=== PATIENT | male | born 1945 | race Caucasian/White ===

== ENCOUNTER 2021-03-04 03:59 | Outpatient (CLI) | payer MEDICARE, SELFPAY ==
[2021-03-04 13:02] LABS: HCT 39.7 % (40.0-50.0); HGB 13.4 g/dL (13.5-17.5); MCHC 33.8 % (32.0-36.0); MCV 91.9 fL (80-95); MPV 11.2 fL (8.0-11.0); Platelet Count 154 10^3/uL (130-400); RBC 4.32 10^6/uL (4.36-5.78); RDW 12.4 % (11.8-14.1); WBC 7.69 10^3/uL (4.4-10.8)
[2021-03-04 13:14] LABS: ALT 35 U/L (16-63); AST 17 U/L (15-37); Albumin 4.1 g/dL (3.4-5.0); Alkaline Phosphatase 51 U/L (46-116); Anion Gap 7.3 mmol/L (3-11); BUN 26 mg/dL (7-18); Bilirubin, Total 0.6 mg/dL (0.2-1.0); CO2 31.7 mmol/L (21.0-32.0); CREATININE 1.5 mg/dL (0.70-1.30); Calculated LDL 74 mg/dL (<100); Chloride 100 mmol/L (98-107); Cholesterol 140 mg/dL (<200); Glucose 114 mg/dL (74-106); HDL Cholesterol 37 mg/dL (40-60); Potassium 4.4 mmol/L (3.5-5.1); Sodium 139 mmol/L (136-145); TSH (W/Ref FT4) 0.77 uIU/mL (0.36-3.74); Triglyceride 145 mg/dL (<150)
[2021-03-04 13:36] LABS: COMMENT (LAB VIEW ONLY) 63.04 mg/dL; Microalb ug/mg Crea 43.6 ug/mg Cr
== END 2021-03-04 04:00 | disposition home or self-care (01) ==
LOC: LOS 03:59
PROVIDERS: PCP Nurse Practitioner Family; Visit Provider Family Medicine
DX: I10 Essential (primary) hypertension; E78.5 Hyperlipidemia, unspecified; E11.69 Type 2 diabetes mellitus with other specified complication
CPT/HCPCS: 36415; 80053; 80061; 85027; 82043; 82570; 83036; 84443

== ENCOUNTER 2021-10-29 02:31 | Outpatient (CLI) | payer MEDICARE, SELFPAY ==
[2021-10-29 10:48] LABS: HCT 38.9 % (40.0-50.0); HGB 12.7 g/dL (13.5-17.5); MCH 29.5 pg (27.0-33.0); MCHC 32.6 % (32.0-36.0); MCV 91 fL (80-95); MPV 11.3 fL (8.0-11.0); Platelet Count 173 10^3/uL (130-400); RDW 12.5 % (11.8-14.1); RDW-SD 40.9 fL; WBC 8.37 10^3/uL (4.4-10.8)
[2021-10-29 11:05] LABS: Hemoglobin A1C 7.5 % (<5.7)
[2021-10-29 11:09] LABS: ALT 16 U/L (16-63); AST 16 U/L (15-37); Albumin 3.8 g/dL (3.4-5.0); Alkaline Phosphatase 79 U/L (46-116); Anion Gap 12.1 mmol/L (3-11); BUN 44 mg/dL (7-18); Bilirubin, Total 0.5 mg/dL (0.2-1.0); CO2 25.9 mmol/L (21.0-32.0); CREATININE 1.9 mg/dL (0.70-1.30); Calcium 10.2 mg/dL (8.5-10.1); Calculated LDL 84 mg/dL (<100); Chloride 97 mmol/L (98-107); Cholesterol 141 mg/dL (<200); Estimated GFR 34.64 (mL/min/1.73m2); Glucose 149 mg/dL (74-106); HDL Cholesterol 39 mg/dL (40-60); Potassium 4.2 mmol/L (3.5-5.1); Sodium 135 mmol/L (136-145); Total Protein 7.6 g/dL (6.4-8.2); Triglyceride 94 mg/dL (<150)
[2021-10-29 11:24] LABS: COMMENT (LAB VIEW ONLY) 81.61 mg/dL; Microalb ug/mg Crea 19.7 ug/mg Cr
== END 2021-10-29 02:32 | disposition home or self-care (01) ==
LOC: LOS 02:31
PROVIDERS: PCP Nurse Practitioner Family; Visit Provider Family Medicine
DX: E78.5 Hyperlipidemia, unspecified; I10 Essential (primary) hypertension; E11.621 Type 2 diabetes mellitus with foot ulcer; L97.529 Non-pressure chronic ulcer of other part of left foot with unspecified severity; N18.9 Chronic kidney disease, unspecified
CPT/HCPCS: 36415; 80053; 80061; 85027; 82043; 82570; 83036

== ENCOUNTER 2021-11-13 09:55 | Day surgery (SDC) | payer MEDICARE, SELFPAY ==
[2021-11-13 10:15] VITALS: BP 167/57; PULSE 54; RESP 17; TEMP 36.3; O2SAT 100
[2021-11-13] MEDS: Silver Nitrate Stick 1 EACH (13:32)
--- NOTE | 2021-11-13 13:40 | W.PM.OP ---
Date of service: 11/13/21 Time of Service: 13:40 Operative Note Operative Note DATE OF PROCEDURE: 11/13/21 PRE-OP DIAGNOSIS: diabetic neuropathic left heel wound PROCEDURE: Full-thickness debridement with jose wound VAC application left heel SURGEON: Haroon Rubio Refer to Anesthesia Record ESTIMATED BLOOD LOSS: 1 PATHOLOGY: other COMPLICATIONS: None Indications: 76-year-old male with dense neuropathy diabetes comorbidities chronic wound of his left heel being brought to the OR for debridement. Original concept was to use Apligraf to stimulate wound granulation but during the debridement noted that he had a deep tunneling approaching the calcaneus although no purulence or active signs of bacterial infection such as cellulitis was observed I decided to withhold the Apligraf application. Procedure Description: Ehsan was brought to the operative suite placed in the supine position with the left foot was prepped and draped in the usual sterile podiatric fashion. With a #10 scalpel and pickup the wound was sharply debrided on the left heel. Upon debridement grayish fibrotic tissue was resected from the base of the wound, hypertrophy from the margin was resected and the wound measured 3.5 cm in width 1.75 cm in length it was 6 to 8 mm deep. Instrument approached if not hit the plantar aspect of the calcaneus. The underlying bone appeared hard. Active bleeding was appreciated from the wound margins with minimal bleeding through the central portion. The fatty tissue within the base of the wound was poorly vascularized and look grayish in appearance. Once again no edith purulence or odor was identified. Cultures were obtained from the deep wound aerobic and anaerobic specimens being obtained. Silver nitrate was used to control bleeding around the periphery of the wound successfully. A jose wound VAC was applied. Good suction was identified. He will be started on p.o. antibiotics x2 Ehsan left the OR with vital signs stable vascular status intact and will follow-up with me in the office next week.
--- NOTE | 2021-11-13 13:46 | DSE_ITS ---
Date of service: 11/13/21 Time of Service: 13:46 Discharge Plan Disposition Patient Disposition: HOME Condition: Good Discharge Details Reason For Visit: Debridement wound left heel Attending Provider: Haroon Rubio Primary Care Provider: Bala Alvarez Home Meds and New Rx's Prescriptions: No Action amlodipine 10 mg tablet 10 mg PO DAILY Qty: 90 4RF chlorthalidone 50 mg tablet 50 mg PO DAILY Qty: 90 4RF tamsulosin 0.4 mg capsule 0.4 mg PO DAILY Qty: 90 3RF metformin 1,000 mg tablet 1,000 mg PO BID Qty: 180 3RF aspirin 81 mg tablet,delayed release (DR/EC) 81 mg PO DAILY atenolol 100 mg tablet 100 mg PO BID (DME) OneTouch Ultra Test Strip See Rx Instructions .ROUTE .MEDSUPPLY Qty: 10 Rx Instructions: As directed cholecalciferol (vitamin D3) 25 mcg (1,000 unit) tablet 25 mcg PO DAILY glipizide 10 mg tablet 10 mg PO BID Label Comments: Pt states no longer taking.HE ogfarxgwhrkn-tsgomggs-cafdis Tablet 1 tab PO DAILY lovastatin 20 mg tablet 20 mg PO DAILY Qty: 90 4RF lisinopril 20 mg tablet 20 mg PO BID Qty: 90 3RF Discharge Instructions Activity:: Elevate Remove Dressings/Wound Care:: Do Not Remove Shower/Bathe:: Cover Diet:: Carb Counting Discharge Orders Discharge Orders: Discharge Order (Routine); Ordered 11/13/21 Ordered By: Haroon Rubio DS: Summary Time Spent with Patient providing and/or coordinating discharge services: Less than 30 minutes Status at Discharge Functional status at discharge: independent ambulation Overall status at discharge: patient is back to baseline Mental Status: mental status grossly normal Speech and Movement: speech and movement normal Mood: congruent mood Affect: normal affect Exam Psych Mental Status: mental status grossly normal Speech and Movement: speech and movement normal Mood: congruent mood Affect: normal affect DS: Data Vitals/I&O Vitals and I&O: Vital Signs Temperature 36.3 C L 11/13/21 10:15 Pulse 54 L 11/13/21 10:15 Pulse Rhythm Regular 11/13/21 10:15 Respiratory Rate 17 11/13/21 10:15 Respiratory Depth Deep 11/13/21 10:15 Blood Pressure 167/57 H 11/13/21 10:15 Pulse Oximetry 100 11/13/21 10:15 Oxygen Delivery Method Room Air 11/13/21 10:15 Oxygen Flow Rate 0 11/13/21 10:15 Pain Level 0 11/13/21 10:15 Intake & Output 11/12/21 11/13/21 11/13/21 18:59 06:59 18:59 Weight 114.9 kg Data Completed and Pending Labs on day of discharge: 11/13/21 13:44 Heel - Left Anaerobic Culture - Pending 11/13/21 13:42 Foot - Left Wound Culture - Pending 11/13/21 13:42 Foot - Left Gram Stain - Pending Preliminary micro results at discharge 11/13/21 13:44 Anaerobic Culture - Pending Heel - Left 11/13/21 13:42 Wound Culture - Pending Foot - Left Gram Stain - Pending PFS All Active Problems Anemia (Chronic) 10/2021, mild, likely associated with CKD Leg edema (Acute) bilat/chronic c/w venous stasis Hyperlipidemia (Acute) Type 2 diabetes mellitus with diabetic nephropathy (Acute) Nicotine dependence (Acute) as of , less than 1 ppd about 50 yr total hx, declines ct [id number] Essential hypertension (Acute) Diabetic foot ulcer (Acute) 09/2021-left heel Chronic kidney disease (Chronic) 2020,stage 3, Cr-1.77, positive microalbuminuria Obesity (Chronic) Osteoarthritis of knee (Acute) chronic bilat. knee pain Pustular psoriasis (Acute) Lumbar strain (Acute) Medical History Tonsillectomy planned Family History Mother , 68 Cancer Alcohol abuse Father , 70 Alcohol abuse Heart disease Sister No problems noted. Sister No problems noted. Brother No problems noted. Brother No problems noted. Brother No problems noted. Son No problems noted. Daughter No problems noted. Daughter No problems noted. Social History Smoking/Tobacco Use Status: Current every day Tobacco Type: cigarettes Tobacco: How many years used: 50 Quit status: has quit before Second Hand Exposure: Yes Smoking risk assessment performed?: Yes Alcohol Intake: current Alcohol Intake frequency: a few times a week Alcohol type: hard liquor Drug use: Never Substance use type: does not use Caregiver/Support person: No Household members: none Housing: house Communication Needs: Hard of Hearing Do you need help understanding health information?: Rarely Pets and animals: No Sexually active: No Do you think of yourself as: straight/heterosexual Current gender identity: male What is your relationship status?: How often do you talk on the phone with friends or family?: three or more times per week How often do you get together with friends or relatives?: twice per week How often do you attend taoism or christian services?: 1-3 times per year Do you belong to any clubs or organized social groups?: no Panel score (0-1 are the most socially isolated patients): 1 What type of physical activity do you participate in: walking Duration: 15-30 minutes/day Frequency: 1-2 times per week Bev/Rastafarian: No preference Special bev needs: No Seatbelt use: always Drive intox or ride 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
== END 2021-11-13 14:45 | disposition home or self-care (01) ==
PROVIDERS: PCP Nurse Practitioner Family; Visit Provider Podiatrist
PROC: (CPT 11043; principal; 2021-11-13 11:00)
DX: E11.621 Type 2 diabetes mellitus with foot ulcer (principal); L97.425 Non-pressure chronic ulcer of left heel and midfoot with muscle involvement without evidence of necrosis
CPT/HCPCS: 11043; 97607; 87070; 87075; 87205

== ENCOUNTER 2021-12-07 13:44 | Outpatient (CLI) | payer MEDICARE, SELFPAY ==
--- NOTE | 2021-12-07 09:00 | DI.RAD_ITS ---
Exam(s) XR KNEE RT 3V AP,LAT,JUAREZ EXAM: XR KNEE RT 3V AP,LAT,JUAREZ CLINICAL HISTORY: chronic pain. TECHNIQUE: 2D digital imaging was performed. Three views. COMPARISON: CR XR KNEE LT 3V AP,LAT,JUAREZ from 12/07/2021 FINDINGS: BONES: No acute fracture is present. No bony destructive lesion is seen. Enthesophyte superior pole p atella. JOINTS: Joint spaces are well maintained the knee is normally aligned. Question small joint effusion. SOFT TISSUE: Arterial calcifications. IMPRESSION: Question small joint effusion DATA REPOSITORY: RADIATION DOSE DELIVERED:
--- NOTE | 2021-12-07 09:00 | DI.RAD_ITS ---
Exam(s) XR KNEE LT 3V AP,LAT,JUAREZ EXAM: XR KNEE LT 3V AP,LAT,JUAREZ CLINICAL HISTORY: chronic pain. TECHNIQUE: 2D digital imaging was performed. Three views. COMPARISON: No exams were available for comparison FINDINGS: BONES: No acute fracture is present. No bony destructive lesion is seen. Small enthesophyte quadrice ps insertion on the patella. JOINTS: Joint spaces are well maintained. The knee is normally aligned. No joint effusion is seen. SOFT TISSUE: Arterial calcifications. IMPRESSION: Small enthesophyte at quadriceps insertion DATA REPOSITORY: RADIATION DOSE DELIVERED:
== END 2021-12-07 13:45 | disposition home or self-care (01) ==
LOC: DIORS 13:44
PROVIDERS: PCP Nurse Practitioner Family; Visit Provider Physician Assistant Surgical
DX: M17.11 Unilateral primary osteoarthritis, right knee (principal); E11.621 Type 2 diabetes mellitus with foot ulcer
CPT/HCPCS: 73562; 99214

== ENCOUNTER 2022-02-12 00:51 | Outpatient (CLI) | payer MEDICARE, SELFPAY ==
[2022-02-12 16:32] LABS: Hemoglobin A1C 7.4 % (<5.7)
[2022-02-12 17:19] LABS: Anion Gap 7.6 mmol/L (3-11); BUN 23 mg/dL (7-18); CO2 30.4 mmol/L (21.0-32.0); CREATININE 1.6 mg/dL (0.70-1.30); Calcium 9.6 mg/dL (8.5-10.1); Chloride 101 mmol/L (98-107); Glucose 231 mg/dL (74-106); Potassium 3.7 mmol/L (3.5-5.1); Sodium 139 mmol/L (136-145)
== END 2022-02-12 00:52 | disposition home or self-care (01) ==
LOC: LBO 00:52
PROVIDERS: PCP Nurse Practitioner Family; Visit Provider Family Medicine
DX: E11.621 Type 2 diabetes mellitus with foot ulcer (principal); L97.528 Non-pressure chronic ulcer of other part of left foot with other specified severity; E11.21 Type 2 diabetes mellitus with diabetic nephropathy; N18.9 Chronic kidney disease, unspecified; I10 Essential (primary) hypertension
CPT/HCPCS: 36415; 80048; 83036

== ENCOUNTER 2022-11-05 01:52 | Outpatient (CLI) | payer MEDICARE, SELFPAY ==
[2022-11-05 12:40] LABS: Hemoglobin A1C 6.8 % (<5.7)
[2022-11-05 12:47] LABS: CREATININE 1.9 mg/dL (0.70-1.30); Calculated LDL 77 mg/dL (<100); Cholesterol 141 mg/dL (<200); Estimated GFR 35.88 (mL/min/1.73m2); HDL Cholesterol 40 mg/dL (40-60); Triglyceride 121 mg/dL (<150)
== END 2022-11-05 01:53 | disposition home or self-care (01) ==
LOC: LOS 01:53
PROVIDERS: PCP Nurse Practitioner Family; Visit Provider Nurse Practitioner Family
DX: I10 Essential (primary) hypertension (principal); E78.5 Hyperlipidemia, unspecified; E11.21 Type 2 diabetes mellitus with diabetic nephropathy
CPT/HCPCS: 36415; 80061; 82565; 83036; 84132

== ENCOUNTER 2023-11-09 11:48 | Outpatient (CLI) | payer MEDICARE, SELFPAY ==
[2023-11-09 12:52] LABS: CREATININE 1.9 mg/dL (0.70-1.30); Calculated LDL 67 mg/dL (<100); Cholesterol 137 mg/dL (<200); Estimated GFR 35.66 (mL/min/1.73m2); HDL Cholesterol 46 mg/dL (40-60); Potassium 4.3 mmol/L (3.5-5.1); Triglyceride 122 mg/dL (<150)
[2023-11-09 12:55] LABS: COMMENT (LAB VIEW ONLY) 78.79 mg/dL
[2023-11-09 13:17] LABS: Microalb ug/mg Crea 122.7 ug/mg Cr
== END 2023-11-09 11:49 | disposition home or self-care (01) ==
LOC: LBO 11:50
PROVIDERS: PCP Nurse Practitioner Family; Visit Provider Nurse Practitioner Family
DX: Z13.6 Encounter for screening for cardiovascular disorders (principal); I10 Essential (primary) hypertension; E11.21 Type 2 diabetes mellitus with diabetic nephropathy
CPT/HCPCS: 36415; 80061; 82043; 82565; 82570; 84132

== ENCOUNTER 2024-10-19 10:43 | Outpatient (CLI) | payer MEDICARE, SELFPAY ==
--- NOTE | 2024-10-19 08:45 | DI.RAD_ITS ---
Exam(s) XR KNEE RT 3V AP,LAT,JUAREZ EXAM: XR KNEE RT 3V AP,LAT,JUAREZ CLINICAL HISTORY: M25.561,M25.562 Pain RT Lt knee, worsening pain. TECHNIQUE: 2D digital imaging was performed. COMPARISON: CR XR KNEE RT 3V AP,LAT,JUAREZ from 12/07/2021 FINDINGS: 3 views No evidence of fracture or prominent joint effusion. Minimal degenerative changes. Bone density nor mal. No osseous lesions. Vascular calcifications again noted, similar to previous. IMPRESSION: No acute osseous findings in the right knee nor significant change compared to images of November 2021. DATA REPOSITORY: RADIATION DOSE DELIVERED:
--- NOTE | 2024-10-19 08:45 | DI.RAD_ITS ---
Exam(s) XR KNEE LT 3V AP,LAT,JUAREZ EXAM: XR KNEE LT 3V AP,LAT,JUAREZ CLINICAL HISTORY: M25.561,M25.562 Pain RT Lt knee, worsening pain. TECHNIQUE: 2D digital imaging was performed. COMPARISON: CR XR KNEE LT 3V AP,LAT,JUAREZ from 12/07/2021 CR XR KNEE RT 3V AP,LAT,JUAREZ from 10/19/2024 FINDINGS: 3 views No evidence fracture. Possible small amount of increased joint fluid. No obvious degenerative howard es. Small enthesophyte at the anterosuperior aspect of the patella again noted at the quadriceps tendon i nsertion site, this unchanged in size from 2021. Bone density normal. No osseous lesions. Vascular calcifications again noted. IMPRESSION: As above. No radiographic change compared to November 2021 images. DATA REPOSITORY: RADIATION DOSE DELIVERED:
== END 2024-10-19 11:03 ==
LOC: DI 10:44
PROVIDERS: PCP Nurse Practitioner Family; Visit Provider Nurse Practitioner Family
DX: M25.561 Pain in right knee (principal); M25.562 Pain in left knee
CPT/HCPCS: 73562

== ENCOUNTER 2024-11-13 07:54 | Outpatient (CLI) | payer MEDICARE, SELFPAY ==
--- NOTE | 2024-11-13 07:45 | RT.EKG_ITS ---
APPROVED REPORT Exam: Resting ECG Reason for Exam: afib Patient Location: O HR:53 bpm ECG Measurements Heart Rate 53 AXIS ND [id number] P [id number] QRSd 106 QRS -14 QT 454 T 37 QTc 427 Conclusion Atrial fibrillation.. Late transition
== END 2024-11-13 07:55 | disposition home or self-care (01) ==
LOC: DI.CARD 07:55
PROVIDERS: PCP Nurse Practitioner Family; Visit Provider Internal Medicine Cardiovascular Disease
DX: I48.91 Unspecified atrial fibrillation (principal)
CPT/HCPCS: 93010

== ENCOUNTER → 2024-11-13 12:29 | Outpatient (BNVA) | payer MEDICARE, SELFPAY | PROVIDERS: PCP Nurse Practitioner Family; Referring Provider Nurse Practitioner Family; Visit Provider Internal Medicine Cardiovascular Disease | DX: I48.19 Other persistent atrial fibrillation (principal); I10 Essential (primary) hypertension; E11.59 Type 2 diabetes mellitus with other circulatory complications; Z79.01 Long term (current) use of anticoagulants | CPT/HCPCS: 99214; 93005 ==

== ENCOUNTER → 2025-02-28 10:45 | Outpatient (BNVA) | payer MEDICARE, SELFPAY | PROVIDERS: PCP Nurse Practitioner Family; Referring Provider Nurse Practitioner Family; Visit Provider Podiatrist | DX: E11.21 Type 2 diabetes mellitus with diabetic nephropathy (principal); E11.42 Type 2 diabetes mellitus with diabetic polyneuropathy; E11.621 Type 2 diabetes mellitus with foot ulcer; L97.522 Non-pressure chronic ulcer of other part of left foot with fat layer exposed; I73.89 Other specified peripheral vascular diseases; F17.200 Nicotine dependence, unspecified, uncomplicated; I70.202 Unspecified atherosclerosis of native arteries of extremities, left leg; R09.89 Other specified symptoms and signs involving the circulatory and respiratory systems; R60.0 Localized edema; R20.8 Other disturbances of skin sensation; L65.9 Nonscarring hair loss, unspecified; R23.4 Changes in skin texture; L60.2 Onychogryphosis; L60.8 Other nail disorders; L85.8 Other specified epidermal thickening | CPT/HCPCS: 11042; 11721; 93922 ==

== ENCOUNTER → 2025-03-14 14:02 | Outpatient (BNVA) | payer MEDICARE, SELFPAY | PROVIDERS: PCP Nurse Practitioner Family; Referring Provider Nurse Practitioner Family; Visit Provider Podiatrist | DX: Z51.89 Encounter for other specified aftercare (principal); E11.42 Type 2 diabetes mellitus with diabetic polyneuropathy; E11.21 Type 2 diabetes mellitus with diabetic nephropathy; L97.522 Non-pressure chronic ulcer of other part of left foot with fat layer exposed; I70.203 Unspecified atherosclerosis of native arteries of extremities, bilateral legs; I73.89 Other specified peripheral vascular diseases; F17.200 Nicotine dependence, unspecified, uncomplicated | CPT/HCPCS: 11042 ==